=== PATIENT | female | born 1970 | race Two or more races ===

== ENCOUNTER 2017-03-31 12:45 | Emergency (ER) | payer SELFPAY ==
[~2017-03-31] VITALS: Ht 160 cm; Wt 60.1 kg
[2017-03-31 12:50] VITALS: BP 128/78
== END 2017-03-31 14:04 | disposition home or self-care (01) ==
LOC: ED 12:45
DX: G51.0 Bell's palsy (principal)

== ENCOUNTER 2018-01-11 00:42 | Inpatient (IN) | payer MEDICAID ==
[~2018-01-11] VITALS: Ht 160 cm; Wt 63.2 kg
[2018-01-11 00:47] VITALS: Ht 160 cm; Wt 63.2 kg
[2018-01-11 02:30] LABS: CALCIUM 7.9 mg/dL (8.5-10.1); CARBON DIOXIDE 24.2 mmol/L (21-32); CHLORIDE SERUM 107 mmol/L (98-107); CREATININE SERUM 0.8 mg/dL (0.6-1.0); GFR1 > 60 mL/min; GLUCOSE SERUM 99 mg/dL (74-106); POTASSIUM SERUM 3.4 mmol/L (3.5-5.1); SODIUM SERUM 139 mmol/L (136-145)
[2018-01-11 02:37] LABS: ALBUMIN 3.4 g/dL (3.4-5.0); ALKALINE PHOSPHATASE 81 U/L (46-116); ALT/SGPT 44 U/L (14-59); AST/SGOT 25 U/L (15-37); BILIRUBIN TOTAL 0.2 mg/dL (0.20-1.00); LIPASE 82 IU/L (73-393); TOTAL PROTEIN, SERUM 6.5 g/dL (6.4-8.2)
[2018-01-11 03:24] LABS: BASOPHIL % 0.6 % (0-2); PLATELET COUNT 294 x10^3mcL (130-400)
[2018-01-11 03:33] LABS: RED CELL DISTRIBUTION WIDTH 18.8 % (11.5-14.5)
[2018-01-11 04:53] VITALS: BP 145/80
[2018-01-11 04:55] LABS: CHOLESTEROL/HDL RATIO 2.6; MAGNESIUM 1.8 mg/dL (1.8-2.4); PHOSPHOROUS 4.8 mg/dL (2.5-4.9)
[2018-01-11 04:59] LABS: T3 TOTAL 1.02 ng/mL
[2018-01-11 05:06] LABS: FREE T4 1.1 ng/dL (0.76-1.46); FREE THYROXINE INDEX 2.6 ug/dL (1.4-4.5); T4(THYROXINE) 7.3 ug/dL (4.7-13.3)
[2018-01-11 07:17] LABS: TOTAL IRON BINDING CAPACITY 394 ug/dL (250-450)
[2018-01-11 07:24] LABS: IRON 21 ug/dL (50-170)
[2018-01-11 08:28] LABS: RED BLOOD CELLS 4.04 M/mm3 (4.10-5.10)
[2018-01-11 09:09] VITALS: BP 106/60
[2018-01-11 09:12] LABS: UA SPECIFIC GRAVITY 1.025 (1.005-1.035); microscopic required? YES; urine erythrocyte TRACE (NEGATIVE)
[2018-01-11 09:21] LABS: AMPHETAMINE QUAL UR NONE DETECTED (NEG <=1000)
[2018-01-11 13:08] VITALS: BP 97/56
[2018-01-11 17:27] VITALS: BP 126/78
[2018-01-11 20:51] VITALS: BP 100/59
[2018-01-12 05:20] VITALS: BP 106/73
[2018-01-12 06:29] LABS: CALCIUM 7.8 mg/dL (8.5-10.1); CARBON DIOXIDE 25.1 mmol/L (21-32); CHLORIDE SERUM 108 mmol/L (98-107); CREATININE SERUM 0.6 mg/dL (0.6-1.0); GFR1 > 60 mL/min; GLUCOSE SERUM 86 mg/dL (74-106); MAGNESIUM 1.8 mg/dL (1.8-2.4); PHOSPHOROUS 5.4 mg/dL (2.5-4.9); POTASSIUM SERUM 4.3 mmol/L (3.5-5.1); SODIUM SERUM 139 mmol/L (136-145)
[2018-01-12 07:35] LABS: BASOPHIL % 0.8 % (0-2); PLATELET COUNT 239 x10^3mcL (130-400)
[2018-01-12 07:36] LABS: RED CELL DISTRIBUTION WIDTH 20.6 % (11.5-14.5)
[2018-01-12 07:37] LABS: rbc morphology (normal/abnorm) ABNORMAL (NORMAL)
[2018-01-12 10:55] VITALS: BP 115/66
[2018-01-12 13:30] VITALS: BP 110/67
[2018-01-12 17:02] VITALS: BP 115/67
[2018-01-12 19:25] VITALS: BP 123/76
[2018-01-13 05:15] VITALS: BP 106/53
[2018-01-13 07:05] LABS: BASOPHIL % 0.1 % (0-2); PLATELET COUNT 281 x10^3mcL (130-400)
[2018-01-13 07:12] LABS: CALCIUM 8.6 mg/dL (8.5-10.1); CARBON DIOXIDE 23.2 mmol/L (21-32); CHLORIDE SERUM 104 mmol/L (98-107); CREATININE SERUM 0.7 mg/dL (0.6-1.0); GFR1 > 60 mL/min; GLUCOSE SERUM 132 mg/dL (74-106); MAGNESIUM 1.9 mg/dL (1.8-2.4); PHOSPHOROUS 2.3 mg/dL (2.5-4.9); POTASSIUM SERUM 4.3 mmol/L (3.5-5.1); SODIUM SERUM 137 mmol/L (136-145)
[2018-01-13 07:18] LABS: rbc morphology (normal/abnorm) ABNORMAL (NORMAL)
[2018-01-13 09:35] VITALS: BP 104/59
[2018-01-13] MEDS ORDERED: MAXALT PO (11:28)
[2018-01-13] MEDS ORDERED: APAP/HYDROCODON1 T13 PO (11:38)
[2018-01-13 14:22] VITALS: BP 104/59
== END 2018-01-13 17:09 | disposition home or self-care (01) | DRG 446 ==
LOC: ED 00:42 → DU 03:58 → MU 01-13 09:18
PROVIDERS: Emergency Medicine; Family Medicine; Urology
PROC: 0T768DZ Dilation of Right Ureter with Intraluminal Device, Via Natural or Artificial Opening Endoscopic (ICD-10-PCS; 2018-01-12)
PROC: 0TC68ZZ Extirpation of Matter from Right Ureter, Via Natural or Artificial Opening Endoscopic (ICD-10-PCS; principal; 2018-01-12 19:30)
DX: N13.2 Hydronephrosis with renal and ureteral calculous obstruction (principal); N17.0 Acute kidney failure with tubular necrosis; E87.6 Hypokalemia; D28.7 Benign neoplasm of other specified female genital organs; Z53.29 Procedure and treatment not carried out because of patient's decision for other reasons; D64.9 Anemia, unspecified; E83.51 Hypocalcemia; Z98.51 Tubal ligation status; Z83.3 Family history of diabetes mellitus; Z82.49 Family history of ischemic heart disease and other diseases of the circulatory system
CPT/HCPCS: 51610; 83880; 84439; C1769; C2625; J0690; J1885; J2270; J2550; J2800; J3010; J7030; J8597; Q0092; Q9967

== ENCOUNTER 2018-01-16 11:05 | Inpatient (IN) | payer MEDICAID ==
[~2018-01-16] VITALS: Ht 160 cm; Wt 63.1 kg
[~2018-01-16 11:05] MED LIST: APAP/HYDROCODON1 T13 PO; MAXALT PO
[2018-01-16 11:18] VITALS: Ht 160 cm; Wt 63.1 kg
[2018-01-16 12:48] LABS: BASOPHIL % 0.2 % (0-2); PLATELET COUNT 225 x10^3mcL (130-400)
[2018-01-16 12:53] LABS: CALCIUM 8.9 mg/dL (8.5-10.1); CARBON DIOXIDE 24.2 mmol/L (21-32); CHLORIDE SERUM 103 mmol/L (98-107); CREATININE SERUM 0.8 mg/dL (0.6-1.0); GFR1 > 60 mL/min; GLUCOSE SERUM 111 mg/dL (74-106); POTASSIUM SERUM 4.1 mmol/L (3.5-5.1); SODIUM SERUM 139 mmol/L (136-145)
[2018-01-16 12:56] LABS: RED CELL DISTRIBUTION WIDTH 20.6 % (11.5-14.5)
[2018-01-16 12:58] LABS: ALBUMIN 3.5 g/dL (3.4-5.0); ALKALINE PHOSPHATASE 119 U/L (46-116); ALT/SGPT 57 U/L (14-59); AST/SGOT 36 U/L (15-37); BILIRUBIN TOTAL 0.43 mg/dL (0.20-1.00); TOTAL PROTEIN, SERUM 7.8 g/dL (6.4-8.2); rbc morphology (normal/abnorm) ABNORMAL (NORMAL)
[2018-01-16 13:46] LABS: UA SPECIFIC GRAVITY >=1.030 (1.005-1.035); microscopic required? YES; urine erythrocyte 3+ (NEGATIVE)
[2018-01-16 16:16] VITALS: BP 115/73
[2018-01-16 16:38] LABS: MAGNESIUM 1.9 mg/dL (1.8-2.4); PHOSPHOROUS 2.9 mg/dL (2.5-4.9)
[2018-01-16 16:42] LABS: AMPHETAMINE QUAL UR NONE DETECTED (NEG <=1000)
[2018-01-16 18:40] VITALS: BP 120/75
[2018-01-16 20:57] VITALS: BP 105/64
[2018-01-17 05:48] VITALS: BP 107/62
[2018-01-17 08:38] LABS: BASOPHIL % 0.4 % (0-2); PLATELET COUNT 213 x10^3mcL (130-400)
[2018-01-17 08:50] LABS: RED CELL DISTRIBUTION WIDTH 21.1 % (11.5-14.5)
[2018-01-17 08:52] LABS: rbc morphology (normal/abnorm) ABNORMAL (NORMAL)
[2018-01-17 08:56] LABS: CHLORIDE SERUM 104 mmol/L (98-107); CREATININE SERUM 0.6 mg/dL (0.6-1.0); GFR1 > 60 mL/min; GLUCOSE SERUM 87 mg/dL (74-106); POTASSIUM SERUM 3.7 mmol/L (3.5-5.1); SODIUM SERUM 135 mmol/L (136-145)
[2018-01-17 09:42] VITALS: BP 116/71
[2018-01-17 13:58] VITALS: BP 131/86
[2018-01-17 14:58] LABS: RED BLOOD CELLS 4.01 M/mm3 (4.10-5.10)
[2018-01-17 15:13] LABS: TOTAL IRON BINDING CAPACITY 349 ug/dL (250-450)
[2018-01-17 15:22] LABS: IRON 15 ug/dL (50-170)
[2018-01-17 16:51] VITALS: BP 115/80
[2018-01-17 20:40] VITALS: BP 114/74
[2018-01-18 05:17] VITALS: BP 119/51
[2018-01-18 06:17] LABS: BASOPHIL % 0.5 % (0-2); PLATELET COUNT 231 x10^3mcL (130-400)
[2018-01-18 06:34] LABS: CALCIUM 8.3 mg/dL (8.5-10.1); CARBON DIOXIDE 24.6 mmol/L (21-32); CHLORIDE SERUM 107 mmol/L (98-107); CREATININE SERUM 0.6 mg/dL (0.6-1.0); GFR1 > 60 mL/min; GLUCOSE SERUM 95 mg/dL (74-106); POTASSIUM SERUM 4.1 mmol/L (3.5-5.1); SODIUM SERUM 144 mmol/L (136-145)
[2018-01-18 08:20] LABS: ovalocyte/elliptocyte 1+; rbc morphology (normal/abnorm) ABNORMAL (NORMAL)
[2018-01-18 09:30] VITALS: BP 103/63
[2018-01-18 12:30] VITALS: BP 103/68
[2018-01-18 17:03] VITALS: BP 114/70
[2018-01-18 20:54] VITALS: BP 113/63
[2018-01-19 05:21] VITALS: BP 114/59
[2018-01-19 06:32] LABS: CALCIUM 8.2 mg/dL (8.5-10.1); CARBON DIOXIDE 24.5 mmol/L (21-32); CHLORIDE SERUM 108 mmol/L (98-107); CREATININE SERUM 0.6 mg/dL (0.6-1.0); GFR1 > 60 mL/min; GLUCOSE SERUM 89 mg/dL (74-106); POTASSIUM SERUM 3.6 mmol/L (3.5-5.1); SODIUM SERUM 142 mmol/L (136-145)
[2018-01-19 07:21] LABS: BASOPHIL % 0.5 % (0-2); PLATELET COUNT 248 x10^3mcL (130-400)
[2018-01-19 07:24] LABS: RED CELL DISTRIBUTION WIDTH 21.9 % (11.5-14.5)
[2018-01-19 08:19] VITALS: BP 105/64
[2018-01-19 08:39] LABS: ovalocyte/elliptocyte 1+; rbc morphology (normal/abnorm) ABNORMAL (NORMAL)
[2018-01-19 12:55] VITALS: BP 111/78
[2018-01-19 16:52] VITALS: BP 105/61
[2018-01-19] MEDS ORDERED: FLO4 PO (17:29)
[2018-01-19] MEDS ORDERED: COL100 PO (17:30)
[2018-01-19] MEDS ORDERED: BACTRIM DS1 TAB PO (17:31)
[2018-01-19] MEDS ORDERED: ZOF4 PO (17:31)
[2018-01-19] MEDS ORDERED: ESGIC CAPSULE1 EACH PO (17:32)
[2018-01-19 18:00] VITALS: BP 105/61
== END 2018-01-19 19:55 | disposition home or self-care (01) | DRG 720 ==
LOC: ED 11:05 → DU 14:56
PROVIDERS: Emergency Medicine; Family Medicine Sports Medicine; Student in an Organized Health Care Education/Training Program
DX: A41.9 Sepsis, unspecified organism (principal); N17.0 Acute kidney failure with tubular necrosis; N13.2 Hydronephrosis with renal and ureteral calculous obstruction; N10 Acute pyelonephritis; E87.1 Hypo-osmolality and hyponatremia; Z82.49 Family history of ischemic heart disease and other diseases of the circulatory system; Z98.51 Tubal ligation status; Z83.3 Family history of diabetes mellitus; D50.9 Iron deficiency anemia, unspecified; D23.9 Other benign neoplasm of skin, unspecified; G43.909 Migraine, unspecified, not intractable, without status migrainosus
CPT/HCPCS: J0696; J1885; J2405; J2916; J7030; Q0092